=== PATIENT | female | born 1980 | race African-American/Black ===

== ENCOUNTER 2020-12-29 22:58 | Emergency (ER) | payer SELFPAY ==
[~2020-12-29] VITALS: Ht 165.1 cm; Wt 65.0 kg
[2020-12-30 00:09] LABS: BASOPHILS % 0.5 % (0.0-2.0); EOSINOPHILS % 1.5 % (0.0-5.0); HEMATOCRIT. 36.5 % (36.0-48.0); HEMOGLOBIN. 12.3 g/dL (12.0-16.0); LYMPHOCYTES % 33.7 % (20.0-50.0); MEAN CORPUSCULAR HEMOGLOBIN 27.5 pg (28.0-32.0); MEAN CORPUSCULAR VOLUME 81.5 fL (81.0-99.0); MEAN PLATELET VOLUME 6.9 fl (7.4-10.4); MONOCYTES % 7.4 % (2.0-8.0); NEUTROPHILS % 56.9 % (40.0-76.0); PLATELET 350 x1000/uL (130-400); RED BLOOD CELL COUNT 4.48 mill/uL (4.2-5.4)
[2020-12-30 00:14] LABS: CHLORIDE 112 mEq/L (98-107)
[2020-12-30 00:18] LABS: ETHANOL BLOOD 138 mg/dL
[2020-12-30 00:20] LABS: HCG SCREEN NEGATIVE
[2020-12-30 00:45] VITALS: BP 113/73
== END 2020-12-30 00:48 ==
LOC: ER 22:58
DX: F10.129 Alcohol abuse with intoxication, unspecified (principal); F15.10 Other stimulant abuse, uncomplicated; Y90.6 Blood alcohol level of 120-199 mg/100 ml
CPT/HCPCS: 36415; 80048; 80320; 84703; 85025; 99283; G0480